=== PATIENT | female | born 1935 | race Caucasian/White ===

== ENCOUNTER 2016-12-06 11:12 | Outpatient (CLI) | payer MEDICARE ==
[2016-12-06 11:39] LABS: Hemoglobin A1c 7.9 % (4.0-6.0)
[2016-12-06 11:46] LABS: ALT (SGPT) 22 U/L (0-55); AST (SGOT) 21 U/L (5-34); Albumin 3.9 g/dL (3.4-4.8); Alkaline Phosphatase 69 U/L (40-150); Anion Gap 13 mmol/L (10-20); BUN (Urea Nitrogen) 30 mg/dL (9.8-20.1); Bilirubin, Total 0.5 mg/dL (0.2-1.2); Calc. Creatinine Clearance 0 mL/min (70-130); Carbon Dioxide 26 mmol/L (23-31); Chloride 100 mmol/L (98-107); Estimated GFR-MDRD 36; Globulin 2.1 g/dL (2.4-3.5); Glucose 416 mg/dL (83-110); Potassium 4.8 mmol/L (3.5-5.1); Sodium 134 mmol/L (136-145)
[2016-12-06 12:26] LABS: Free T4 (Free Thyroxine) 1.03 ng/dL (0.70-1.48); Thyroid Stimulating Hormone 1.9466 uIU/mL (0.35-4.94); Vitamin D, 25 Hydroxy 34.5 ng/mL (> 30.0)
== END 2016-12-06 11:13 | disposition home or self-care (01) ==
LOC: MADLAB 11:12
PROVIDERS: ATTEND Internal Medicine Endocrinology, Diabetes & Metabolism
DX: E55.9 Vitamin D deficiency, unspecified (principal); E11.65 Type 2 diabetes mellitus with hyperglycemia
CPT/HCPCS: 36415; 80053; 82306; 83036; 84439; 84443; 84481

== ENCOUNTER 2017-04-26 07:59 | Outpatient (CLI) | payer MEDICARE ==
[2017-04-26 08:50] LABS: Hemoglobin A1c 7.5 % (4.0-6.0)
[2017-04-26 08:52] LABS: Anion Gap 15 mmol/L (10-20); BUN (Urea Nitrogen) 25 mg/dL (9.8-20.1); BUN/Creatinine Ratio 20.83; Calc. Creatinine Clearance 0 mL/min (70-130); Calcium 9.4 mg/dL (7.8-10.44); Carbon Dioxide 25 mmol/L (23-31); Chloride 103 mmol/L (98-107); Estimated GFR-MDRD 43; Glucose 148 mg/dL (83-110); Potassium 5.1 mmol/L (3.5-5.1); Sodium 138 mmol/L (136-145)
[2017-04-26 09:01] LABS: Bilirubin Negative (Negative); Blood, Urine Trace (Negative); Clarity Clear (Clear); Glucose, Urine (Dipstick) Negative (Negative); Leukocyte Negative (Negative); Nitrite Negative (Negative); Protein, Urine (Dipstick) Negative (Neg-Trace); Specific Gravity, Urine 1.015 (1.005-1.030); Urobilinogen 0.2 mg/dL (0.2-1.0)
[2017-04-26 09:06] LABS: Hemoglobin 12.9 g/dL (12.0-16.0); Mean Corpuscular HGB CONC 32.3 g/dL (32.0-36.0); Mean Corpuscular Hemoglobin 32.6 pg (27.0-31.0); Mean Corpuscular Volume 100.8 fl (81.0-99.0); Mean Platelet Volume 13.4 fL (7.4-10.4); Platelet Count 161 thou/uL (130-400); RBC Distribution Width 12.4 % (11.5-14.5); Red Blood Cell (RBC) Count 3.96 mill/uL (4.20-5.40); White Blood Cell (WBC) Count 5.5 thou/uL (4.8-10.8)
[2017-04-26 17:17] LABS: Protein, Urine Random Quant Less than 10 mg/dL
== END 2017-04-26 08:00 | disposition home or self-care (01) ==
LOC: MADLAB 07:59
PROVIDERS: ATTEND Internal Medicine Nephrology
DX: E11.22 Type 2 diabetes mellitus with diabetic chronic kidney disease (principal); N18.3 Chronic kidney disease, stage 3 (moderate); I25.10 Atherosclerotic heart disease of native coronary artery without angina pectoris; R32 Unspecified urinary incontinence; R80.9 Proteinuria, unspecified; E78.5 Hyperlipidemia, unspecified
CPT/HCPCS: 36415; 80069; 81003; 82570; 83036; 84156; 85027; 85652

== ENCOUNTER 2017-10-14 07:45 | Outpatient (CLI) | payer MEDICARE ==
--- NOTE | 2017-10-14 08:32 | RAD ---
RIGHT HAND; Date: 10/14/17 HISTORY: Pain. COMPARISON: None. FINDINGS: Mild narrowing second and third metacarpophalangeal joints. There are erosions in the lunotriquetral interval. There are erosions in the medial margin of the lunate. Narrowing of the thumb carpometacarpal joint is present. Mild soft tissue swelling around the second digit distal phalanx. IMPRESSION: 1. 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 2. Mild interphalangeal joint space narrowing suggesting osteoarthrosis. 3. Narrowing of second and third metacarpophalangeal joints can be seen with inflammatory arthropath y. POS: OFF
--- NOTE | 2017-10-14 08:38 | RAD ---
LEFT HAND 2 VIEWS: Date: 10/14/17 HISTORY: Arthritis. No pain. COMPARISON: None. FINDINGS: There are erosions of the medial margin of the lunate, as well as of the triquetrum pisiform. There a re also acute small erosions of the distal carpal row. Mild narrowing of second and third metacarpoph alangeal joints. There is some calcification along the lateral ligamentous complex of distal interphalangeal joint mid dle finger. There is previously seen old fracture of the ulnar styloid base. IMPRESSION: 1. Erosions of the proximal and distal carpal row can be seen with inflammatory arthropathy. 2. 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 POS: OFF
[2017-10-14 09:32] LABS: ALT (SGPT) 22 U/L (8-55); AST (SGOT) 22 U/L (5-34); Albumin 3.9 g/dL (3.4-4.8); Alkaline Phosphatase 67 U/L (40-150); Anion Gap 15 mmol/L (10-20); BUN (Urea Nitrogen) 32 mg/dL (9.8-20.1); Bilirubin, Total 0.8 mg/dL (0.2-1.2); Calc. Creatinine Clearance 0 mL/min (70-130); Calcium 9.2 mg/dL (7.8-10.44); Carbon Dioxide 26 mmol/L (23-31); Chloride 103 mmol/L (98-107); Cholesterol 174 mg/dl (< 200 Desired); Estimated GFR-MDRD 37; Globulin 2.3 g/dL (2.4-3.5); Glucose 215 mg/dL (83-110); HDL Cholesterol 87 mg/dL (>60 Neg Risk); LDL Cholesterol, Calculated 73 mg/dL; Potassium 4.2 mmol/L (3.5-5.1); Protein, Total 6.2 g/dL (6.0-8.3); Sodium 140 mmol/L (136-145); Triglycerides 72 mg/dL (Less than 150)
[2017-10-14 09:45] LABS: Thyroid Stimulating Hormone 2.3168 uIU/mL (0.35-4.94)
[2017-10-14 10:01] LABS: #Basophils 0.1 thou/uL (0.0-0.2); #Eosinphils 0.2 thou/uL (0.0-0.7); #Lymphocytes 1.9 thou/uL (1.20-3.40); #Monocytes 0.6 thou/uL (0.11-0.59); #Neutrophils 3.7 thou/uL (1.40-6.50); %Basophils 1.4 % (0.0-1.0); %Eosinophils 3.2 % (0.0-10.0); %Lymphocytes 28.9 % (21.0-51.0); %Monocytes 9.3 % (0.0-10.0); %Neutrophils 57.2 % (42.0-75.0); Hemoglobin 12.4 g/dL (12.0-16.0); Mean Corpuscular HGB CONC 32.2 g/dL (32.0-36.0); Mean Corpuscular Hemoglobin 33.3 pg (27.0-31.0); Mean Corpuscular Volume 103.4 fl (81.0-99.0); Mean Platelet Volume 11.1 fL (7.4-10.4); Platelet Count 187 thou/uL (130-400); Red Blood Cell (RBC) Count 3.74 mill/uL (4.20-5.40); White Blood Cell (WBC) Count 6.5 thou/uL (4.8-10.8)
[2017-10-14 17:15] LABS: Free T4 (Free Thyroxine) 1.08 ng/dL (0.70-1.48); Vitamin D, 25 Hydroxy 35.9 ng/ml (> 30.0)
== END 2017-10-14 07:46 | disposition home or self-care (01) ==
LOC: MADRAD 07:45
PROVIDERS: ATTEND Family Medicine
DX: M25.541 Pain in joints of right hand (principal); M25.542 Pain in joints of left hand; E11.65 Type 2 diabetes mellitus with hyperglycemia; E55.9 Vitamin D deficiency, unspecified; M13.842 Other specified arthritis, left hand
CPT/HCPCS: 36415; 80053; 80061; 82306; 83036; 84439; 84443; 84481; 85025

== ENCOUNTER 2017-12-03 02:19 | Emergency (ER) | payer MEDICARE ==
[2017-12-03 04:17] LABS: #Basophils 0.1 thou/uL (0.0-0.2); #Eosinphils 0.2 thou/uL (0.0-0.7); #Monocytes 0.6 thou/uL (0.11-0.59); #Neutrophils 2.6 thou/uL (1.40-6.50); %Basophils 1.6 % (0.0-1.0); %Eosinophils 3.9 % (0.0-10.0); %Lymphocytes 36.4 % (21.0-51.0); %Monocytes 10.7 % (0.0-10.0); %Neutrophils 47.4 % (42.0-75.0); Mean Corpuscular HGB CONC 33.9 g/dL (32.0-36.0); Mean Corpuscular Volume 100.5 fl (81.0-99.0); Mean Platelet Volume 10.4 fL (7.4-10.4); Platelet Count 165 thou/uL (130-400); RBC Distribution Width 11.8 % (11.5-14.5); Red Blood Cell (RBC) Count 3.23 mill/uL (4.20-5.40); White Blood Cell (WBC) Count 5.4 thou/uL (4.8-10.8)
[2017-12-03 04:18] LABS: ALT (SGPT) 34 U/L (8-55); AST (SGOT) 27 U/L (5-34); Albumin 3.4 g/dL (3.4-4.8); Alkaline Phosphatase 55 U/L (40-150); Anion Gap 12 mmol/L (10-20); BUN (Urea Nitrogen) 30 mg/dL (9.8-20.1); Bilirubin, Total 0.3 mg/dL (0.2-1.2); Calc. Creatinine Clearance 0 mL/min (70-130); Calcium 8.4 mg/dL (7.8-10.44); Carbon Dioxide 26 mmol/L (23-31); Chloride 108 mmol/L (98-107); Estimated GFR-MDRD 51; Globulin 1.7 g/dL (2.4-3.5); Glucose 141 mg/dL (83-110); Potassium 4.4 mmol/L (3.5-5.1); Protein, Total 5.1 g/dL (6.0-8.3); Sodium 142 mmol/L (136-145)
[2017-12-03 04:20] LABS: Anisocytosis SLIGHT = 6-15 cells (100X) (0-5/hpf); Macrocytosis SLIGHT = 6-15 cells (100X) (0-5/hpf)
[2017-12-03 04:24] LABS: CKMB 2.9 ng/mL (0-6.6); Troponin I Less than 0.010 ng/mL (< 0.028)
[2017-12-03 04:33] LABS: CK (CPK) 75 U/L (29-168)
--- NOTE | 2017-12-03 07:57 | RAD ---
AP CHEST: Indication: History of chest pain. Comparison: 12-19-15 IMPRESSION: There are stable COPD changes and mild cardiomegaly. No acute cardiopulmonary abnormality is noted wh en compared to the prior. POS: [facility]
--- NOTE | 2017-12-03 08:11 | CT ---
PRELIMINARY REPORT/[facility]/EMERGENCY AFTER HOURS PROCEDURE: EXAM: CT Angiography Chest With Intravenous Contrast EXAM DATE/TIME: Exam ordered 12/03/2017 4:42 AM CLINICAL HISTORY: 81 years old, female; Pain; Chest pain; Type not specified; Patient HX: Chest pain with high d-dimer TECHNIQUE: Axial computed tomographic angiography images of the chest with intravenous contrast using pulmonary embolism protocol. All CT scans at this facility use one or more dose reduction techniques, viz.: aut omated exposure control; ma/kV adjustment per patient size (including targeted exams where dose is ma tched to indication; i.e. head); or iterative reconstruction technique. MIP reconstructed images were created and reviewed. CONTRAST: 100 mL of ISOVUE administered intravenously. COMPARISON: No relevant prior studies available. FINDINGS: Artifacts: Respiratory motion artifact is present somewhat limiting evaluation. Pulmonary arteries: There is no evidence of peripheral filling defects within the pulmonary arterial circulation to suggest pulmonary embolism. Aorta: There is no evidence of aortic dissection, leak, rupture, or other complications. The aorta is normal. Lungs: There is subpleural atelectasis of the dependent portions of the lungs. No mass. Pleural space: Normal. No significant effusion. No pneumothorax. Heart: Normal. No cardiomegaly. No significant pericardial effusion. No evidence of RV dysfunction. Bones/joints: No acute fracture. No dislocation. Soft tissues: Normal. Lymph nodes: Normal. No enlarged lymph nodes. IMPRESSION: 1. There is no evidence of aortic dissection, leak, rupture, or other complications. 2. There is no CT evidence of acute pulmonary embolism. Thank you for allowing us to participate in the care of your patient. Dictated and Authenticated by: Garo Tavreas MD 12/03/2017 5:43 AM Central Time ([place] & [place]) FINAL REPORT CT ANGIOGRAM CHEST WITH CONTRAST: HISTORY: Chest pain. Elevated D-dimer. Evaluate for pulmonary embolism. COMPARISON: Radiograph same say. FINDINGS: CT angiogram chest performed with the intravenous administration of contrast. Three-D rendering was provided. Findings and impression are concordant with the preliminary report. POS: OFF
[2017-12-03] MEDS ORDERED: Iopamidol 370 76% 125 ML VIAL FS ONE (09:21)
== END 2017-12-03 06:00 | disposition home or self-care (01) ==
LOC: MADERS 02:19
DX: R00.2 Palpitations (principal); E11.9 Type 2 diabetes mellitus without complications; E78.5 Hyperlipidemia, unspecified; Z79.4 Long term (current) use of insulin; F41.9 Anxiety disorder, unspecified; Z79.899 Other long term (current) drug therapy
CPT/HCPCS: 36415; 71045; 71275; 80053; 82550; 82553; 84484; 85025; 85379; 93005

== ENCOUNTER 2018-07-04 12:30 | Outpatient (CLI) | payer MEDICARE ==
[2018-07-04 13:03] LABS: ALT (SGPT) 21 U/L (8-55); AST (SGOT) 21 U/L (5-34); Albumin 4.1 g/dL (3.4-4.8); Alkaline Phosphatase 64 U/L (40-150); Anion Gap 16 mmol/L (10-20); BUN (Urea Nitrogen) 28 mg/dL (9.8-20.1); Bilirubin, Total 0.6 mg/dL (0.2-1.2); Calc. Creatinine Clearance 0 mL/min (70-130); Calcium 9.4 mg/dL (7.8-10.44); Carbon Dioxide 24 mmol/L (23-31); Chloride 104 mmol/L (98-107); Estimated GFR-MDRD 40; Glucose 237 mg/dL (83-110); Protein, Total 6.1 g/dL (6.0-8.3); Sodium 139 mmol/L (136-145)
[2018-07-04 13:21] LABS: #Basophils 0.1 thou/uL (0.0-0.2); #Eosinphils 0.1 thou/uL (0.0-0.7); #Lymphocytes 1.2 thou/uL (1.20-3.40); #Monocytes 0.5 thou/uL (0.11-0.59); #Neutrophils 4.5 thou/uL (1.40-6.50); %Basophils 1.3 % (0.0-1.0); %Eosinophils 1.4 % (0.0-10.0); %Lymphocytes 19.1 % (21.0-51.0); %Monocytes 7.6 % (0.0-10.0); %Neutrophils 70.6 % (42.0-75.0); Hemoglobin 12.1 g/dL (12.0-16.0); Mean Corpuscular HGB CONC 32.8 g/dL (32.0-36.0); Mean Corpuscular Hemoglobin 33.6 pg (27.0-31.0); Mean Corpuscular Volume 102.5 fL (78.0-98.0); Mean Platelet Volume 12.4 fL (7.4-10.4); Platelet Count 149 thou/uL (130-400); RBC Distribution Width 11.8 % (11.5-14.5); White Blood Cell (WBC) Count 6.4 thou/uL (4.8-10.8)
--- NOTE | 2018-07-04 13:55 | RAD ---
TWO VIEWS OF THE CHEST 07/04/18 COMPARISON: 12/19/15 HISTORY: Viral infection. FINDINGS: Two views of the chest show normal sized cardiomediastinal silhouette. There is no evidence of consol idation, mass, or pleural effusion. The bones are unremarkable. IMPRESSION: No evidence of acute cardiopulmonary disease. POS: [facility]
[2018-07-04 14:05] LABS: Anisocytosis SLIGHT = 6-15 cells (100X) (0-5/hpf); Macrocytosis SLIGHT = 6-15 cells (100X) (0-5/hpf); PLT Morphology Comment Appears Adequate; Poikilocytosis SLIGHT = 6-15 cells (100X) (0-5/hpf)
[2018-07-04 16:51] LABS: Hemoglobin A1c 7.5 % (4.0-6.0)
== END 2018-07-04 12:31 | disposition home or self-care (01) ==
LOC: MADLAB 12:30
PROVIDERS: ATTEND Family Medicine
DX: E11.65 Type 2 diabetes mellitus with hyperglycemia (principal); E55.9 Vitamin D deficiency, unspecified; B34.9 Viral infection, unspecified; R53.83 Other fatigue; E78.5 Hyperlipidemia, unspecified; R32 Unspecified urinary incontinence; R00.1 Bradycardia, unspecified
CPT/HCPCS: 36415; 71046; 80053; 83036; 85025

== ENCOUNTER 2020-06-14 16:37 | Outpatient (CLI) | payer MEDICARE ==
--- NOTE | 2020-06-14 16:51 | RAD ---
XR Chest Pa Lat STANDARD HISTORY: Chest pain and dyspnea COMPARISON: 07/04/2018 FINDINGS: The heart size is normal. The aorta is tortuous. The lungs are well expanded without focal areas of consolidation, pneumothorax or pleural effusions. IMPRESSION: No radiographic evidence of acute cardiopulmonary process.
== END 2020-06-14 16:38 | disposition home or self-care (01) ==
LOC: MADRAD 16:37
PROVIDERS: ATTEND Family Medicine
DX: R07.9 Chest pain, unspecified (principal)
CPT/HCPCS: 71046

== ENCOUNTER 2020-08-11 11:06 | Outpatient (CLI) | payer MEDICARE ==
--- NOTE | 2020-08-11 12:02 | RAD ---
Exam:Left knee 5 views HISTORY: Pain. Patient fell 3 weeks ago COMPARISON: None FINDINGS: No evidence of patellar dislocation. No evidence of joint effusion. Joint spaces are preser ziggy. No fracture or malalignment. Atherosclerosis is identified. IMPRESSION: No evidence of fracture.
--- NOTE | 2020-08-11 12:02 | RAD ---
Exam: XR Hand Rt 3 View STANDARD HISTORY: Right hand pain after a fall 3 weeks ago. COMPARISON: 10/14/2017. FINDINGS: As described on prior examination, there are erosions involving the proximal and distal carpal row wi th can be seen with inflammatory arthropathy. There is osteoarthritis involving the metacarpal phalangeal joint of the thumb. Joint space narrowing of the metacarpal phalangeal joints of the index and middle fingers is again present. Postoperative changes proximal right radius are again seen. No fracture or dislocation is seen involving the right hand. Vascular calcifications are seen at the level of the wrist. IMPRESSION: 1. Scattered erosions of the proximal distal carpal row stable from prior study which as described on examination can be seen with inflammatory arthropathy. 2. Scattered osteoarthritis. 3. No acute osseous abnormality.
--- NOTE | 2020-08-11 12:07 | RAD ---
Exam: XR Shoulder Rt 3 View STANDARD HISTORY: Right shoulder pain after a fall 3 weeks ago. COMPARISON: None FINDINGS: Mild right acromioclavicular joint osteoarthritis is present. No fracture or dislocation is seen. A c ouple of calcifications are seen overlying the region of the greater tuberosity which could be related to calcific peritendinitis. IMPRESSION: No acute osseous abnormality is identified.
== END 2020-08-11 11:07 | disposition home or self-care (01) ==
LOC: MADLAB 11:06
PROVIDERS: ATTEND Family Medicine
DX: M25.562 Pain in left knee (principal); M79.641 Pain in right hand; M25.511 Pain in right shoulder; M19.041 Primary osteoarthritis, right hand; M85.841 Other specified disorders of bone density and structure, right hand

== ENCOUNTER 2021-04-26 12:48 | Outpatient (CLI) | payer MEDICARE ==
[2021-04-26 13:43] LABS: Hemoglobin 11.3 g/dL (12.0-16.0); Mean Corpuscular HGB CONC 30.6 g/dL (32.0-36.0); Mean Corpuscular Hemoglobin 31.1 pg (27.0-31.0); Mean Corpuscular Volume 101.5 fL (78.0-98.0); Mean Platelet Volume 8.5 fL (7.4-10.4); Platelet Count 285 thou/uL (130-400); RBC Distribution Width 12.3 % (11.5-14.5); Red Blood Cell (RBC) Count 3.65 mill/uL (4.20-5.40); White Blood Cell (WBC) Count 10.9 thou/uL (4.8-10.8)
[2021-04-26 13:47] LABS: Bilirubin Negative (Negative); Blood, Urine Negative (Negative); Clarity Clear (Clear); Glucose, Urine (Dipstick) Negative (Negative); Ketone, Urine Negative (Negative); Leukocyte Negative (Negative); Nitrite Negative (Negative); Protein, Urine (Dipstick) Negative (Neg-Trace); Urobilinogen 0.2 mg/dL (Less than 2)
[2021-04-26 14:31] LABS: Albumin 3.6 g/dL (3.4-4.8); Anion Gap 17 mmol/L (10-20); BUN (Urea Nitrogen) 32 mg/dL (9.8-20.1); BUN/Creatinine Ratio 27.83; Calc. Creatinine Clearance 0 mL/min (70-130); Calcium 9.5 mg/dL (7.8-10.44); Carbon Dioxide 27 mmol/L (23-31); Chloride 103 mmol/L (98-107); Glucose 186 mg/dL (83-110); Phosphorus 3.4 mg/dL (2.3-4.7); Potassium 4.6 mmol/L (3.5-5.1); Sodium 142 mmol/L (136-145); Uric Acid 3.8 mg/dL (2.6-6.0)
[2021-04-26 22:13] LABS: Creatinine, Urine 43.13 mg/dL (47-110); Protein, Urine Random Quant Less than 10 mg/dL (1-14)
== END 2021-04-26 12:49 | disposition home or self-care (01) ==
LOC: MADLAB 12:48
PROVIDERS: ATTEND Internal Medicine Nephrology
DX: E11.22 Type 2 diabetes mellitus with diabetic chronic kidney disease (principal); N18.30 Chronic kidney disease, stage 3 unspecified; E78.5 Hyperlipidemia, unspecified; I25.10 Atherosclerotic heart disease of native coronary artery without angina pectoris; R80.9 Proteinuria, unspecified; R32 Unspecified urinary incontinence
CPT/HCPCS: 36415; 80069; 81003; 82570; 84156; 84443; 84550; 85027

== ENCOUNTER 2021-05-03 10:47 | Outpatient (CLI) | payer MEDICARE | END 2021-05-03 10:48 | disposition home or self-care (01) | LOC: MADLAB 10:47 | PROVIDERS: ATTEND Internal Medicine | DX: R19.00 Intra-abdominal and pelvic swelling, mass and lump, unspecified site (principal); R10.9 Unspecified abdominal pain; I70.1 Atherosclerosis of renal artery; I70.90 Unspecified atherosclerosis | CPT/HCPCS: 74176 ==

== ENCOUNTER 2021-06-23 12:04 | Outpatient (CLI) | payer MEDICARE | END 2021-06-23 12:05 | disposition home or self-care (01) | LOC: MADLAB 12:04 | PROVIDERS: ATTEND Family Medicine | DX: R05.3 Chronic cough (principal); J18.9 Pneumonia, unspecified organism | CPT/HCPCS: 71046 ==

== ENCOUNTER 2021-07-03 16:18 | Outpatient (CLI) | payer MEDICARE | END 2021-07-03 16:19 | disposition home or self-care (01) | LOC: MADRAD 16:18 | PROVIDERS: ATTEND Internal Medicine | DX: D49.9 Neoplasm of unspecified behavior of unspecified site (principal); J98.4 Other disorders of lung | CPT/HCPCS: 36415; 71250; 82565 ==

== ENCOUNTER 2021-08-15 10:54 | Outpatient (CLI) | payer MEDICARE | END 2021-08-15 10:55 | disposition home or self-care (01) | LOC: MADLAB 10:54 → MADCT 10:55 | PROVIDERS: ATTEND Internal Medicine | DX: R91.8 Other nonspecific abnormal finding of lung field (principal); J47.9 Bronchiectasis, uncomplicated; I96 Gangrene, not elsewhere classified | CPT/HCPCS: 71250 ==

== ENCOUNTER 2021-10-21 17:29 | Emergency (ER) | payer MEDICARE ==
[2021-10-21 18:33] LABS: #Eosinphils 0.1 thou/uL (0.0-0.7); #Lymphocytes 0.6 thou/uL (1.20-3.40); #Monocytes 0.5 thou/uL (0.11-0.59); #Neutrophils 4.7 thou/uL (1.40-6.50); %Basophils 0.5 % (0.0-1.0); %Eosinophils 2.2 % (0.0-10.0); %Lymphocytes 9.8 % (21.0-51.0); %Monocytes 8.3 % (0.0-10.0); %Neutrophils 79.3 % (42.0-75.0); Hemoglobin 10.4 g/dL (12.0-16.0); Mean Corpuscular HGB CONC 32.6 g/dL (32.0-36.0); Mean Corpuscular Hemoglobin 31.1 pg (27.0-31.0); Mean Corpuscular Volume 95.5 fL (78.0-98.0); Mean Platelet Volume 7.5 fL (7.4-10.4); Platelet Count 320 thou/uL (130-400); RBC Distribution Width 11.5 % (11.5-14.5); Red Blood Cell (RBC) Count 3.35 mill/uL (4.20-5.40)
[2021-10-21 18:44] LABS: ALT (SGPT) 20 U/L (8-55); AST (SGOT) 31 U/L (5-34); Albumin 3.1 g/dL (3.4-4.8); Alkaline Phosphatase 71 U/L (40-110); Anion Gap 16 mmol/L (10-20); BUN (Urea Nitrogen) 44 mg/dL (9.8-20.1); Bilirubin, Total 0.5 mg/dL (0.2-1.2); Calc. Creatinine Clearance 0 mL/min (70-130); Calcium 8.5 mg/dL (7.8-10.44); Carbon Dioxide 23 mmol/L (23-31); Chloride 102 mmol/L (98-107); Globulin 2.8 g/dL (2.4-3.5); Glucose 197 mg/dL (83-110); Potassium 4.3 mmol/L (3.5-5.1); Protein, Total 5.9 g/dL (5.8-8.1); Sodium 137 mmol/L (136-145)
== END 2021-10-21 19:10 | disposition home or self-care (01) ==
LOC: MADERS 17:29
DX: U07.1 COVID-19 (principal); J12.82 Pneumonia due to coronavirus disease 2019; I49.3 Ventricular premature depolarization; E78.5 Hyperlipidemia, unspecified; E78.00 Pure hypercholesterolemia, unspecified; E11.9 Type 2 diabetes mellitus without complications; Z79.4 Long term (current) use of insulin
CPT/HCPCS: 36415; 71250; 80053; 84484; 85025; 93005

== ENCOUNTER 2022-02-20 13:45 | Outpatient (CLI) | payer MEDICARE | END 2022-02-20 13:46 | disposition home or self-care (01) | LOC: MADLAB 13:45 | PROVIDERS: ATTEND Family Medicine | DX: U07.1 COVID-19 (principal); J12.82 Pneumonia due to coronavirus disease 2019 | CPT/HCPCS: 71046; 83880; 85379 ==

== ENCOUNTER 2022-08-24 12:34 | Emergency (ER) | payer MEDICARE ==
[2022-08-24 13:28] LABS: #Basophils 0.1 thou/uL (0.0-0.2); #Eosinphils 0.1 thou/uL (0.0-0.7); #Lymphocytes 0.7 thou/uL (1.20-3.40); #Monocytes 0.5 thou/uL (0.11-0.59); #Neutrophils 4.8 thou/uL (1.40-6.50); %Basophils 1.1 % (0.0-1.0); %Eosinophils 1.2 % (0.0-10.0); %Lymphocytes 10.7 % (21.0-51.0); %Monocytes 8.2 % (0.0-10.0); %Neutrophils 78.8 % (42.0-75.0); Hemoglobin 12.1 g/dL (12.0-16.0); Mean Corpuscular HGB CONC 33.4 g/dL (32.0-36.0); Mean Corpuscular Hemoglobin 33.2 pg (27.0-31.0); Mean Corpuscular Volume 99.6 fl (78.0-98.0); Mean Platelet Volume 11.8 fL (7.4-10.4); Platelet Count 141 10x3/uL (130-400); RBC Distribution Width 12.3 % (11.5-14.5); Red Blood Cell (RBC) Count 3.65 mill/uL (4.20-5.40)
[2022-08-24 13:45] LABS: ALT (SGPT) 13 U/L (8-55); AST (SGOT) 13 U/L (5-34); Alkaline Phosphatase 83 U/L (40-110); Anion Gap 16 mmol/L (10-20); BUN (Urea Nitrogen) 34 mg/dL (9.8-20.1); Bilirubin, Total 0.5 mg/dL (0.2-1.2); Calc. Creatinine Clearance 0 mL/min (70-130); Calcium 9.6 mg/dL (7.8-10.44); Carbon Dioxide 26 mmol/L (23-31); Chloride 103 mmol/L (98-107); Estimated GFR 42; Globulin 2.2 g/dL (2.4-3.5); Glucose 235 mg/dL (83-110); Magnesium 1.5 mg/dL (1.6-2.6); Potassium 5.4 mmol/L (3.5-5.1); Protein, Total 6.2 g/dL (5.8-8.1); Sodium 140 mmol/L (136-145)
[2022-08-24] MEDS ORDERED: Magnesium Oxide 400 MG TAB ONE (14:06)
== END 2022-08-24 14:10 | disposition home or self-care (01) ==
LOC: MADERS 12:34
DX: I49.3 Ventricular premature depolarization (principal); E83.42 Hypomagnesemia; E78.00 Pure hypercholesterolemia, unspecified; E11.9 Type 2 diabetes mellitus without complications; Z79.899 Other long term (current) drug therapy; Z79.4 Long term (current) use of insulin
CPT/HCPCS: 36415; 71045; 80053; 83735; 84484; 85025; 93005

== ENCOUNTER 2023-03-15 10:46 | Emergency (ER) | payer MEDICARE ==
[2023-03-15 11:38] LABS: Bilirubin Negative (Negative); Blood, Urine Negative (Negative); Clarity Clear (Clear); Glucose, Urine (Dipstick) Negative (Negative); Ketone, Urine Negative (Negative); Leukocyte Negative (Negative); Nitrite Negative (Negative); Protein, Urine (Dipstick) Negative (Neg-Trace); Specific Gravity, Urine 1.015 (1.005-1.030); Urobilinogen 0.2 mg/dL (Less than 2); pH, Urine 5.5 (5.0-9.0)
[2023-03-15 11:41] LABS: CAUTI Indications for Culture Dysuria,urgency,freq
[2023-03-15 11:45] LABS: Bacteria/HPF Rare-Few HPF (None Seen); RBC/HPF 0-3 HPF (0-3); Squamous Epithelial 0-3 HPF (0-3); WBC/HPF 0-3 HPF (0-3)
[2023-03-15 11:47] LABS: Urine Culture Reflex No No
== END 2023-03-15 12:06 | disposition home or self-care (01) ==
LOC: MADERS 10:46
DX: S09.90XA Unspecified injury of head, initial encounter (principal); K21.9 Gastro-esophageal reflux disease without esophagitis; E78.00 Pure hypercholesterolemia, unspecified; E11.9 Type 2 diabetes mellitus without complications; Z79.4 Long term (current) use of insulin; Z79.899 Other long term (current) drug therapy; W19.XXXA Unspecified fall, initial encounter; Y92.009 Unspecified place in unspecified non-institutional (private) residence as the place of occurrence of the external cause
CPT/HCPCS: 70450; 81001

== ENCOUNTER 2024-01-13 10:04 | Outpatient (CLI) | payer MEDICARE ==
[2024-01-13 10:40] LABS: Albumin 4.1 g/dL (3.4-4.8); Anion Gap 16 mmol/L (10-20); BUN (Urea Nitrogen) 48 mg/dL (9.8-20.1); BUN/Creatinine Ratio 35.29; Calc. Creatinine Clearance 0 mL/min (70-130); Calcium 9.8 mg/dL (7.8-10.44); Carbon Dioxide 25 mmol/L (23-31); Chloride 105 mmol/L (98-107); Estimated GFR 38; Glucose 120 mg/dL (83-110); Phosphorus 4.2 mg/dL (2.3-4.7); Potassium 4.6 mmol/L (3.5-5.1); Sodium 141 mmol/L (136-145)
== END 2024-01-13 10:05 | disposition home or self-care (01) ==
LOC: MADLAB 10:04
PROVIDERS: ATTEND Internal Medicine Nephrology
DX: E11.22 Type 2 diabetes mellitus with diabetic chronic kidney disease (principal); N18.9 Chronic kidney disease, unspecified
CPT/HCPCS: 36415; 76700; 80069

== ENCOUNTER 2024-03-25 11:17 | Outpatient (CLI) | payer MEDICARE | END 2024-03-25 11:18 | disposition home or self-care (01) | LOC: MADRAD 11:17 | PROVIDERS: ATTEND Family Medicine | DX: J69.0 Pneumonitis due to inhalation of food and vomit (principal) | CPT/HCPCS: 71046 ==

== ENCOUNTER 2024-10-18 10:19 | Emergency (ER) | payer MEDICARE ==
[2024-10-18 11:46] LABS: Bilirubin Negative (Negative); Blood, Urine Negative (Negative); Clarity Clear (Clear); Glucose, Urine (Dipstick) 500 mg/dL (Negative); Ketone, Urine Negative (Negative); Leukocyte Negative (Negative); Nitrite Negative (Negative); Protein, Urine (Dipstick) Negative (Neg-Trace); Specific Gravity, Urine 1.015 (1.005-1.030); Urobilinogen 0.2 mg/dL (Less than 2); pH, Urine 5.5 (5.0-9.0)
[2024-10-18 11:56] LABS: Anion Gap 14 mmol/L (10-20); BUN (Urea Nitrogen) 35 mg/dL (9.8-20.1); Calc. Creatinine Clearance 0 mL/min (70-130); Calcium 9.4 mg/dL (7.8-10.44); Carbon Dioxide 27 mmol/L (23-31); Chloride 99 mmol/L (98-107); Estimated GFR 39; Glucose 329 mg/dL (83-110); Potassium 4.2 mmol/L (3.5-5.1); Sodium 136 mmol/L (136-145)
[2024-10-18] MEDS ORDERED: Bacitracin 1 PK ONE (12:07)
[2024-10-18 12:09] LABS: Hematocrit 34.5 % (36.0-47.0); Hemoglobin 11.5 g/dL (12.0-16.0); Mean Corpuscular HGB CONC 33.2 g/dL (32.0-36.0); Mean Corpuscular Hemoglobin 32.3 pg (27.0-31.0); Mean Corpuscular Volume 97.3 fl (78.0-98.0); Platelet Count 141 10x3/uL (130-400); RBC Distribution Width 11.3 % (11.5-14.5); Red Blood Cell (RBC) Count 3.55 mill/uL (4.20-5.40)
[2024-10-18 12:11] LABS: Bacteria/HPF Rare-Few HPF (None Seen); CAUTI Indications for Culture Dysuria,urgency,freq; RBC/HPF None Seen HPF (0-3); Urine Culture Reflex No No
[2024-10-18 12:17] LABS: MDiff Complete? YES; Manual Diff?? YES
[2024-10-18 12:23] LABS: Band 2 % (5-11); Eosinophils 4 % (0-10); Lymphocytes 14 % (21-51); Monocytes 4 % (0-10); Neutrophil 70 % (42-75); Platelet Adequacy Comment Appears Adequate; Polychromasia SLIGHT = 2-3 cells (100X) (0-2/hpf); Reactive Lymphocytes 6 % (0-10)
[2024-10-18 12:24] LABS: Large Platelets SLIGHT (None Seen)
== END 2024-10-18 12:32 | disposition home or self-care (01) ==
LOC: MADERS 10:19
DX: S51.812A Laceration without foreign body of left forearm, initial encounter (principal); R05.9 Cough, unspecified; E78.00 Pure hypercholesterolemia, unspecified; K21.9 Gastro-esophageal reflux disease without esophagitis; E11.9 Type 2 diabetes mellitus without complications; I10 Essential (primary) hypertension; Z79.4 Long term (current) use of insulin; Z79.82 Long term (current) use of aspirin; Z79.899 Other long term (current) drug therapy; W19.XXXA Unspecified fall, initial encounter
CPT/HCPCS: 12004; 36415; 71045; 80048; 81001; 85025

== ENCOUNTER 2024-10-18 21:47 | Emergency (ER) | payer MEDICARE | END 2024-10-18 23:58 | disposition home or self-care (01) | LOC: MADERS 21:47 | DX: S51.812A Laceration without foreign body of left forearm, initial encounter (principal); E78.5 Hyperlipidemia, unspecified; E11.9 Type 2 diabetes mellitus without complications; Z79.4 Long term (current) use of insulin; Z79.899 Other long term (current) drug therapy; Z79.82 Long term (current) use of aspirin; W19.XXXA Unspecified fall, initial encounter | CPT/HCPCS: 70450; 72125 ==

== ENCOUNTER 2024-10-20 01:09 | Emergency (ER) | payer MEDICARE ==
[2024-10-20 04:28] LABS: Base Excess-Venous 2.8 mmol/L (-2.0 to 3.0); CO2 Tension (PvCO2) 39.5 mmHg (42.0-51.0); Calcium, Ionized 1.15 mmol/L (1.15-1.33); Chloride 101 mmol/L (98-107); Hemoglobin - Calc 12.7 g/dL (12.0-16.0); Potassium 3.9 mmol/L (3.5-5.1); Sodium 138 mmol/L (138-145); T. Carbon Dioxide 28.2 mmol/L (22.0-28.0); vO2 Saturation-calc 90.3 % (60.0-85.0)
[2024-10-20 04:34] LABS: Anion Gap 17 mmol/L (10-20); BUN (Urea Nitrogen) 28 mg/dL (9.8-20.1); Calc. Creatinine Clearance 0 mL/min (70-130); Calcium 9.3 mg/dL (7.8-10.44); Carbon Dioxide 22 mmol/L (23-31); Chloride 101 mmol/L (98-107); Estimated GFR 49; Glucose 334 mg/dL (83-110)
[2024-10-20 04:41] LABS: Sodium 136 mmol/L (136-145)
[2024-10-20] MEDS ORDERED: Lidocaine 4% Patch ONE (05:09)
[2024-10-20] MEDS ORDERED: Acetaminophen 325 MG TAB ONE (05:12)
[2024-10-20] MEDS ORDERED: Lantus 1000 UNITS/10 ML VIAL ONE ×2 (05:51→05:58)
[2024-10-20] MEDS ORDERED: Insulin Regular, Human 100 UNIT/ML 10 ML VIAL ONE (08:30)
[2024-10-20 09:03] LABS: #Lymphocytes 0.6 thou/uL (1.20-3.40); #Monocytes 0.8 thou/uL (0.11-0.59); #Neutrophils 9.9 thou/uL (1.40-6.50); %Basophils 0.3 % (0.0-1.0); %Eosinophils 0.3 % (0.0-10.0); %Lymphocytes 5.4 % (21.0-51.0); %Monocytes 6.9 % (0.0-10.0); %Neutrophils 87.1 % (42.0-75.0); Hematocrit 36.4 % (36.0-47.0); Hemoglobin 11.7 g/dL (12.0-16.0); Mean Corpuscular HGB CONC 32.3 g/dL (32.0-36.0); Mean Corpuscular Hemoglobin 30.3 pg (27.0-31.0); Mean Corpuscular Volume 93.8 fl (78.0-98.0); Mean Platelet Volume 10.2 fL (7.4-10.4); Platelet Count 136 10x3/uL (130-400); RBC Distribution Width 11.1 % (11.5-14.5); Red Blood Cell (RBC) Count 3.88 mill/uL (4.20-5.40); White Blood Cell (WBC) Count 11.4 10x3/uL (4.8-10.8)
== END 2024-10-20 10:14 | disposition short-term general hospital (02) ==
LOC: MADERS 01:09
DX: S32.10XA Unspecified fracture of sacrum, initial encounter for closed fracture (principal); W19.XXXA Unspecified fall, initial encounter; E11.9 Type 2 diabetes mellitus without complications; Z79.82 Long term (current) use of aspirin; Z79.899 Other long term (current) drug therapy; Z79.4 Long term (current) use of insulin; E78.00 Pure hypercholesterolemia, unspecified
CPT/HCPCS: 36415; 36416; 72192; 80048; 82330; 82803; 85025; J1815